=== PATIENT | female | born 2000 | race Caucasian/White ===

== ENCOUNTER 2021-03-16 13:25 | Emergency (ER) | payer SELFPAY ==
[~2021-03-16] VITALS: Ht 170.2 cm; Wt 53.5 kg
--- NOTE | 2021-03-16 13:48 | NUR ---
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
[2021-03-16 14:22] LABS: HEMATOCRIT 36.6 % (31.2-41.9); MEAN CORPUSCULAR HEMOGLOBIN 29.1 uug (24.7-32.8); MEAN CORPUSCULAR VOLUME 86.8 fL (75.5-95.3); PLATELET COUNT (AUTO) 178 K/uL (179-408)
[2021-03-16 14:28] LABS: CREATININE 0.8 mg/dL (0.6-1.3); POTASSIUM 3.8 mmol/L (3.5-5.1)
[2021-03-16 16:10] VITALS: BP 111/70
== END 2021-03-16 16:11 | disposition home or self-care (01) ==
LOC: ER 13:26
DX: O03.9 Complete or unspecified spontaneous abortion without complication (principal)
CPT/HCPCS: 36415; 76856; 85025; A4663

== ENCOUNTER 2021-03-17 13:37 | Emergency (ER) | payer SELFPAY ==
[~2021-03-17] VITALS: Ht 170.2 cm; Wt 53.5 kg
--- NOTE | 2021-03-17 15:18 | NUR ---
Patient discharged to home in stable condition. Written and verbal after care instructions given. Patient verbalizes understanding of instructions. Stressed follow up or return to ER for worsening s/s.translation provided by pt's own phone duran per pt request.
== END 2021-03-17 15:26 | disposition home or self-care (01) ==
LOC: ER 13:37
DX: O03.9 Complete or unspecified spontaneous abortion without complication (principal)
CPT/HCPCS: 36415; 86850; 86900; 86901; A4663